=== PATIENT | female | born 1945 | race Caucasian/White ===

== ENCOUNTER 2022-04-28 11:11 | Emergency (ER) | payer MEDICARE, OTHER ==
[~2022-04-28] VITALS: Ht 157.5 cm; Wt 74.8 kg
[2022-04-28 11:11] VITALS: BP 170/75
[2022-04-28 11:33] VITALS: BP_SYST 170
[2022-04-28] MEDS ORDERED: BOOSTRIX IM ONE ×2 (12:00→12:01)
--- NOTE | 2022-04-28 12:02 | DIREP ---
PROCEDURE:CT HEAD OR BRAIN W/O CONTRAST COMPARISON:None. INDICATIONS:Pain/injury S/P fall TECHNIQUE:CT images were created without intravenous contrast. FINDINGS: VENTRICLES:The ventricles are normal in size and configuration for patient's age. CEREBRUM:Mild decreased attenuation is seen in the periventricular white matter bilaterally. CEREBELLUM:Negative. BRAINSTEM:Negative. BASAL CISTERNS:Negative. HEMORRHAGE (Vol L*W*H*.52):No MASS LESION:No ACUTE INFARCT:No SKULL:No fracture is seen. Skin waqas are noted in the right parietal scalp. SINUSES:Normal. OTHER:None CONCLUSION:No fracture or hemorrhage is seen. There are findings consistent with mild chronic small vessel ischemic changes in the periventricular white matter bilaterally. Dictated by: Cl Goodwin M.D. on 04/28/2022 at 11:59 AM
--- NOTE | 2022-04-28 12:14 | ER.PDOC ---
General Chief Complaint: Head Injury Stated Complaint: FALL HEAD INJURY Time seen by MD: 12:10 Source: patient Exam Limitations: no limitations History of Present Illness Initial Comments Laceration of back of head status post fall. Patient tripped. He denies passing out. No loss of consciousness. No neck pain. Occurred: just prior to arrival Where: work Severity: moderate Location: occipital Method of Injury: fell Remembers: injury, coming to hospital Past Medical History Medical History: hypertension Surgical History: hysterectomy, knee Family History Significant Family History: no pertinent family hx Social History Smoking: non-smoker Alcohol Use: none Drug Use: none Review of Systems Constitutional: no symptoms reported Respiratory: no symptoms reported Cardiovascular: no symptoms reported Gastrointestinal: no symptoms reported Musculoskeletal: no symptoms reported Skin: see HPI All Other Systems: Reviewed and Negative Physical Exam General Appearance: Alert, No Apparent Distress, WD/WN Head: Lacerations (posterior scalp) Eye: PERRL, EOMI, No nystagmus ENT: Nml external inspection, Pharynx nml 1 - Lac Neck: non-tender, painless ROM, trachea midline Cardiovascular/Respiratory: Regular Rate, Rhythm, No M/R/G, Normal Peripheral Pulses, No JVD, Normal Breath Sounds, No Respiratory Distress Gastrointestinal: Normal Bowel Sounds, No Organomegaly, No Pulsatile Mass, Non Tender, Soft Back: Normal Inspection, No CVA Tenderness, No Vertebral Tenderness Extremities: Normal Range of Motion, Non-Tender, Normal Inspection, No Pedal Edema, No Calf Tenderness, Normal Capillary Refill NEURO/PSYCH: Alert, Oriented x3, Cooperative, Interactive, Mood/affect nml Cranial Nerves: Normal Hearing, Normal Speech, PERRL Motor/Sensory: No Motor Deficit, No Sensory Deficit, No Pronator Drift, Negative Babinski's Sign Skin: Normal Color, Warm/Dry Lymphatic: No Adenopathy Melida Coma Score Best Eye Response: (4) Open Spontaneously Best Verbal Response: (5) Oriented Best Motor Response: (6) Obeys Commands ED LACERATION WOUND REPAIR # of Wounds/Lacerations Presen: 1 Wound Location & Length (Requi: Head Wound Length (cm): 3 Wound cleaned: betadine Wound's Depth, Shape: linear Wound Repaired With: waqas Results/Orders Results/Orders Orders - TIMOTHY LÓPEZ MD Ct Head Wo Contrast (04/28/22 11:39) Diph,Pertuss(Acell),Tet Vac/Pf (Boostrix (04/28/22 12:00) Diph,Pertuss(Acell),Tet Vac/Pf (Boostrix (04/28/22 12:01) Vital Signs Date Time Temp Pulse Resp B/P (MAP) Pulse Ox O2 Delivery O2 Flow Rate FiO2 04/28/22 11:33 18 04/28/22 11:11 98.1 62 18 170/75 (106) 98 Room Air* 0 21 04/28/22 11:11 98.1 62 18 04/28/22 11:11 98.1 62 18 98 Administered Medications Medications (Trade) Dose Ordered Sig/Alexey Route PRN Reason Start Time Stop Time Status Last Admin Dose Admin Diphtheria/ Tetanus/Acell Pertussis (Boostrix) 0.5 ml ONCE ONCE IM 04/28/22 12:00 04/28/22 12:01 DC 04/28/22 12:08 0.5 ML Progress Progress Patient received a tetanus shot. CT head show no acute intracranial abnormality. ER DEPART Departure Time of Disposition: 12:13 Disposition: 01 HOME / SELF CARE / HOMELESS Impression: Primary Impression: Head injury, acute Condition: Improved Patient Instructions: Head Injury, Adult, [id number] Referrals: PCP,UNKNOWN (PCP) PRIMARY CARE PROVIDER Additional Instructions: Keflex Tylenol Apply Neosporin daily Remove waqas in 7 days at your PCP or ED Return to ED sooner if any concerns Duration or Time Spent with Pa: 10 min Problem Qualifiers Primary Impression: Head injury, acute Encounter type: initial encounter Qualified Codes: S09.90XA - Unspecified injury of head, initial encounter TIMOTHY LÓPEZ MD Apr 28, 2022 12:14
[2022-04-28] MEDS ORDERED: TRIPLE ANTIBIOTIC OINTMENT TP ONE (12:17)
== END 2022-04-28 12:20 | disposition home or self-care (01) ==
LOC: ER 11:11
DX: S09.90XA Unspecified injury of head, initial encounter (principal); I10 Essential (primary) hypertension; Z90.710 Acquired absence of both cervix and uterus; W01.0XXA Fall on same level from slipping, tripping and stumbling without subsequent striking against object, initial encounter; Y93.89 Activity, other specified; Y92.89 Other specified places as the place of occurrence of the external cause; Y99.8 Other external cause status
CPT/HCPCS: 12002; 12011; 70450; 90471; 90715; 99285